=== PATIENT | male | born 1995 | race Two or more races ===

== ENCOUNTER 2021-01-05 15:39 | Emergency (ER) | payer OTHER ==
[~2021-01-05] VITALS: Ht 170.2 cm; Wt 69.4 kg
[2021-01-05 17:47] VITALS: BP 141/95
[2021-01-05] MEDS ORDERED: IBUPROFEN 800 MG TAB PO ONE (18:00)
== END 2021-01-05 18:27 | disposition home or self-care (01) ==
LOC: ER 15:39 → EDBD 15:39 → ER 18:27
DX: S16.1XXA Strain of muscle, fascia and tendon at neck level, initial encounter (principal); S46.812A Strain of other muscles, fascia and tendons at shoulder and upper arm level, left arm, initial encounter; V49.49XA Driver injured in collision with other motor vehicles in traffic accident, initial encounter; Y93.89 Activity, other specified; Y92.488 Other paved roadways as the place of occurrence of the external cause; Y99.8 Other external cause status
CPT/HCPCS: 72040; 72125; 73030